=== PATIENT | female | born 1930 | race Caucasian/White ===

== ENCOUNTER 2017-05-24 15:03 | Emergency (ER) | payer MEDICARE, BC ==
[2017-05-24] MEDS ORDERED: 0.9 % SODIUM CHLORIDE 1,000 ML BAG IV ONE (15:43)
--- NOTE | 2017-05-24 15:49 | Emergency Department Record ---
History of Present Illness - General Chief Complaint: Dizziness Stated Complaint: FAINT,DIZINESS,BROKE OUT IN A SWEAT,SEEING SPOTS Time Seen by Provider: 05/24/17 15:40 Source: Patient Mode of Arrival: Ambulatory Limitations: No limitations - History of Present Illness Initial Comments: The patient is here due to becoming dizzy and lightheaded while standing in line at [employer]'s checking out. The patient did see spots in her vision for some time and did get sweating. There was no CP but she did have mild SHERMAN at times. The patient never passed out and was talking the entire time. She also denied any weakness on one side of the body or trouble with her speech. She has had a recent UTI and is on an oral Abx. MD Complaint: Dizziness, Lightheadedness Onset/Timin -: Hour(s) Timing: Sudden onset Description: Lightheadedness History of Same: No History of Trauma: No - Miry[place] Coma Scale Eye Response: (4) Open spontaneously Motor Response: (6) Obeys commands Verbal Response: (5) Oriented Miryam Total: 15 - Related Data Home Medications Medication Instructions Recorded Confirmed Last Taken Nitroglycerin [Nitroglycerin Patch] 1 each TD Q12HR 05/24/17 05/24/17 05/24/17 Nitroglycerin [Nitrostat] 0.4 mg SL ASDIR 05/24/17 05/24/17 05/24/17 Allergies Allergy/AdvReac Type Severity Reaction Status Date / Time Sulfa (Sulfonamide Allergy PT UNSURE Verified 05/24/17 15:19 Antibiotics) OF REACTION Travel Screening - Travel/Exposure Within Last 30 Days Have you traveled within the last 30 days?: No - Travel/Exposure Within Last Year Have you traveled outside the [place] 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" - NEURO Hx Neuro Disorders: No Hx Seizures: No - GI Hx GI Disorders: Yes Hx Reflux: Yes - Hx Genitourinary Disorders: Yes Hx UTI: Yes - ENDOCRINE Hx Endocrine Disorders: Yes Hx Diabetes: Yes (Type II) - MUSCULOSKELETAL Hx Musculoskeletal Disorders: Yes Hx Arthritis: Yes Hx Osteoporosis: Yes - PSYCH Hx Psych Problems: No - HEMATOLOGY/ONCOLOGY Hx Hematology/Oncology Disorders: Yes Hx Cancer: Yes (Over 10 years ago) Hx Chemotherapy: No Hx Radiation Therapy: Yes Family Medical History Any Significant Family History?: Yes Family Hx Comment (NOT TO BE USED IN PLACE OF ITEMS BELOW): Unable to identify and ancesterial history as patient was adopted. Hx Kidney Disease: Children *Kidney Comment: Son related to MS Physical Exam - General General Appearance: Alert, Oriented x3, Cooperative, No acute distress - Head Head exam: Atraumatic, Normocephalic, Normal inspection - Eye Eye exam: Normal appearance, PERRL - ENT Throat exam: Normal inspection. negative: Tonsillar erythema, Tonsillar exudate - Neck Neck exam: Normal inspection, Full ROM. negative: Tenderness - Respiratory Respiratory exam: Normal lung sounds bilaterally. negative: Respiratory distress - Cardiovascular Cardiovascular Exam: Regular rate, Normal rhythm, Normal heart sounds - GI/Abdominal GI/Abdominal exam: Soft, Normal bowel sounds. negative: Tenderness - Extremities Extremities exam: Normal inspection, Full ROM, Normal capillary refill. negative: Tenderness - Neurological Neurological exam: Alert, Normal gait. negative: Abnormal gait, Motor sensory deficit Course Vital Signs 05/24/17 15:24 Temperature 97.3 F L Pulse Rate 87 Respiratory 20 Rate Blood Pressure 125/63 Pulse Ox 100 - Reevaluation(s) Reevaluation #1: The patient is doing very well at this time. She feels better and denies any pain or SOB. 05/24/17 16:26 Reevaluation #2: The patient is doing very well at this time. She denies any pain or discomfort or weakness. She now states she did not eat lunch prior to going on the shopping trip and believes that is why she became lightheaded. 05/24/17 16:57 Reevaluation #3: The patient is doing very well at this time. She is resting comfortably and has no complaints. I did explain the normal lab tests to the patient and family and family and the need for F/U next week if not better. The patient has been up walking normally in the ED and feels comfortable going home. 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 Please see your family doctor next week for any minor problems and return to the ER for any recurrent symptoms, chest pain, shortness of breath or fever. Forms: Patient Portal Access Time of Disposition: 18:46 Quality - Quality Measures Quality Measures: N/A - Blood Pressure Screening View Details: Yes Does Patient Have Any of the Following: No Blood Pressure Classification: Pre-Hypertensive BP Reading Systolic Measurement: 160 Diastolic Measurement: 80 Screening for High Blood Pressure: < Pre-Hypertensive BP, F/U Documented > [ G8950] Pre-Hypertensive Follow-up Interventions: Referral to alternative/primary care provider.
[2017-05-24 15:51] LABS: BASO % 0.2 % (0-6); EOS % 1.9 % (0-6); GRAN % 70.9 % (47-80); HEMATOCRIT 42.1 % (35.0-47.0); HEMOGLOBIN 13.1 gm/dl (11.6-16.0); LYMPH % 21.7 % (16-45); MEAN CELL VOLUME 94.6 fl (81-97); MEAN CORPUSCULAR HEMOGLOBIN 29.4 pg (27-33); MEAN CORPUSCULAR HGB CONC 31.1 g/dl (32-36); MEAN PLATELET VOLUME 10.2 fl (7.4-10.4); MONO % 5.3 % (0-9); PLATELET COUNT 238 K/uL (130-400); RED BLOOD COUNT 4.45 M/uL (3.80-5.40); RED CELL DISTRIBUTION WIDTH 12.5 % (11.5-14.5); WHITE BLOOD COUNT W/O DIFF 9.7 K/uL (4.2-12.2)
[2017-05-24 16:06] LABS: BLOOD UREA NITROGEN 22 mg/dL (8-23); CREATININE 1.1 mg/dL (0.5-0.9); EST GLOMERULAR FILTRATION RATE 50 mL/min; TOTAL PROTEIN 6.9 g/dL (6.6-8.7)
[2017-05-24 16:08] LABS: GLUCOSE,RANDOM 131 mg/dL (74-109)
[2017-05-24 16:11] LABS: ALB/GLOB RATIO 1.6 (1.1-1.8); ALBUMIN 4.2 g/dL (4.0-5.0); ALKALINE PHOSPHATASE 57 U/L (35-104); ALT/SGPT 16 U/L (<33); AST/SGOT 23 U/L (10.0-35.0); CREATINE PHOSPHOKINASE 484 U/L (26-192)
[2017-05-24 16:14] LABS: CKMB 5.2 ng/mL (<3.77)
[2017-05-24 16:22] LABS: THYROID STIMULATING HORMONE 1.97 uIU/mL (0.270-4.20)
[2017-05-24 18:04] LABS: URINE APPEARANCE CLEAR; URINE BILIRUBIN NEGATIVE (NEGATIVE); URINE BLOOD NEGATIVE (NEGATIVE); URINE COLOR YELLOW; URINE GLUCOSE (UA) NEGATIVE (NEGATIVE); URINE KETONE NEGATIVE (NEGATIVE); URINE LEUKOCYTE ESTERASE NEGATIVE (NEGATIVE); URINE NITRITE NEGATIVE (NEGATIVE); URINE PROTEIN NEGATIVE (NEGATIVE); URINE UROBILINOGEN 0.2 E.U./dL (0.20 - 1.00)
[2017-05-24 18:38] LABS: CKMB 4.6 ng/mL (<3.77)
== END 2017-05-24 18:53 | disposition home or self-care (01) ==
LOC: ER 15:03
DX: R42 Dizziness and giddiness (principal); R06.00 Dyspnea, unspecified; E11.9 Type 2 diabetes mellitus without complications
CPT/HCPCS: 80053; 81003; 82550; 82553; 84443; 84484; 85025; 93005; 93010; 96360; 96361; 99284; J7030

== ENCOUNTER 2017-08-14 12:18 | Observation (INO) | payer MEDICARE, BC ==
--- NOTE | 2017-08-14 13:00 | Emergency Department Record ---
History of Present Illness - General Chief complaint: Lower Extremity Pain Stated complaint: SCIATICA Time Seen by Provider: 08/14/17 12:49 Source: Patient Mode of Arrival: Ambulatory Limitations: No limitations - History of Present Illness Initial comments: The patient is here due to a 2 week hx of L back and leg pain. She states it is quite severe and makes it difficult for her to walk around with her cane. She has seen her PCP for it twice and has received multiple pain shots for it. She also had neg L hip and knee xrays last week along with a venous doppler. Now she has been taking [place] for the pain but since it is so severe her PCP told her to come to the ER for admission. MD Complaint: Extremity pain Onset/Timin -: Week(s) Improves with: Movement - Related Data Allergies Allergy/AdvReac Type Severity Reaction Status Date / Time Sulfa (Sulfonamide Allergy PT UNSURE Verified 08/14/17 12:33 Antibiotics) OF REACTION Travel Screening - Travel/Exposure Within Last 30 Days Have you traveled within the last 30 days?: No - Travel/Exposure Within Last Year Have you traveled outside the [place] in the last year?: No - Additonal Travel Details Have you been exposed to anyone with a communicable illness?: No - Travel Symptoms Symptom Screening: None Review of Systems Constitutional: Denies: Chills, Fever Eyes: Denies: Eye discharge ENT: Denies: Congestion Respiratory: Denies: Cough Cardiovascular: Denies: Arrhythmia, Chest pain Endocrine: Denies: Fatigue Gastrointestinal: Denies: Abdominal pain Genitourinary: Denies: Dysuria Musculoskeletal: Reports: Arthralgia, Back pain Past Medical History - SOCIAL HISTORY Smoking Status: Never smoker Alcohol Use: None Drug Use: None - RESPIRATORY Hx Respiratory Disorders: No - CARDIOVASCULAR Hx Cardio Disorders: Yes Comment:: 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" - NEURO Hx Neuro Disorders: No Hx Seizures: No - GI Hx GI Disorders: Yes Hx Reflux: Yes - Hx Genitourinary Disorders: Yes Hx UTI: Yes - ENDOCRINE Hx Endocrine Disorders: Yes Hx Diabetes: Yes (Type II) - MUSCULOSKELETAL Hx Musculoskeletal Disorders: Yes Hx Arthritis: Yes Hx Osteoporosis: Yes - PSYCH Hx Psych Problems: No - HEMATOLOGY/ONCOLOGY Hx Hematology/Oncology Disorders: Yes Hx Cancer: Yes (Over 10 years ago) Hx Chemotherapy: No Hx Radiation Therapy: Yes Family Medical History Any Significant Family History?: Yes Family Hx Comment (NOT TO BE USED IN PLACE OF ITEMS BELOW): Unable to identify and ancesterial history as patient was adopted. Hx Kidney Disease: Children *Kidney Comment: Son related to MS Physical Exam - General General Appearance: Alert, Oriented x3, Cooperative, No acute distress - Head Head exam: Atraumatic, Normocephalic, Normal inspection - Eye Eye exam: Normal appearance, PERRL - Neck Neck exam: Normal inspection, Full ROM. negative: Tenderness - Respiratory Respiratory exam: Normal lung sounds bilaterally. negative: Respiratory distress - Cardiovascular Cardiovascular Exam: Regular rate, Normal rhythm, Normal heart sounds - GI/Abdominal GI/Abdominal exam: Soft, Normal bowel sounds. negative: Tenderness - Extremities Extremities exam: Normal inspection, Normal capillary refill, Other (The L leg is NVI.). negative: Calf tenderness, Full ROM (There is diffuse L Leg tenderness to palpation athough the leg appears normal on exam.), Joint swelling , Pedal edema, Tenderness - Back Back exam: Reports: Normal inspection, Paraspinal tenderness (L lower lumbar paraspinal mainly.), Vertebral tenderness - Neurological Neurological exam: Abnormal gait (The patient is able to walk with her cane with pain.), Alert. negative: Motor sensory deficit, Normal gait Course Vital Signs 08/14/17 12:33 Temperature 97.1 F L Pulse Rate 77 Respiratory 17 Rate Blood Pressure 134/63 Pulse Ox 96 - Reevaluation(s) Reevaluation #1: The patient is resting comfortably in no acute distress with no new complaints. I did discuss the issues with the patient and daughter and they state the patient is not able to get around her home and she lives alone and per the daughter is a fall risk. I then did discuss the problems with Carmen (CONFIDENTIAL INVESTIGATOR) who is [employer] dynamics consultant with Dr. Gale and due to the social situation and Sciatica she does accept the admission for PT and possible NH placement. 08/14/17 14:20 Medical Decision Making - Data Complexity MDM Data: Labs Ordered and/or Reviewed, X-Ray Ordered and/or Reviewed - Lab Data Result diagrams: 08/14/17 13:10 08/14/17 13:10 - Radiology Data Radiology results: Report reviewed (Lumbar spine: extensive DDD, no acute changes.) Disposition Disposition: Admit Clinical Impression: Sciatic leg pain Disposition: Still a Patient at [facility] Decision to Admit: Admit from ER Decision to Admit Date: 08/14/17 Decision to Admit Time: 14:22 Accepting Physician: Shahla Time Discussed w/Accepting Physician: 14:23 Condition: (2) Stable Time of Disposition: 14:23 Quality - Quality Measures Quality Measures: N/A - Blood Pressure Screening View Details: Yes Does Patient Have Any of the Following: No Blood Pressure Classification: Pre-Hypertensive BP Reading Systolic Measurement: 134 Diastolic Measurement: 63 Screening for High Blood Pressure: < Pre-Hypertensive BP, F/U Documented > [ G8950] Pre-Hypertensive Follow-up Interventions: Referral to alternative/primary care provider.
[2017-08-14 13:15] LABS: BASO % 0.2 % (0-6); EOS % 0.5 % (0-6); HEMATOCRIT 43.1 % (35.0-47.0); HEMOGLOBIN 14.4 gm/dl (11.6-16.0); LYMPH % 14.7 % (16-45); MEAN CELL VOLUME 90.5 fl (81-97); MEAN CORPUSCULAR HEMOGLOBIN 30.3 pg (27-33); MEAN CORPUSCULAR HGB CONC 33.4 g/dl (32-36); MEAN PLATELET VOLUME 9.6 fl (7.4-10.4); MONO % 5.6 % (0-9); PLATELET COUNT 274 K/uL (130-400); RED BLOOD COUNT 4.76 M/uL (3.80-5.40); RED CELL DISTRIBUTION WIDTH 12.7 % (11.5-14.5); WHITE BLOOD COUNT W/O DIFF 10.7 K/uL (4.2-12.2)
[2017-08-14 13:27] LABS: BILIRUBIN,TOTAL 0.8 mg/dL (0.2-1.0); CREATININE 1.1 mg/dL (0.5-0.9); TOTAL PROTEIN 7.3 g/dL (6.6-8.7)
[2017-08-14 13:32] LABS: ALB/GLOB RATIO 1.4 (1.1-1.8); ALBUMIN 4.3 g/dL (4.0-5.0)
[2017-08-14] MEDS ORDERED: HYDROCODONE/APAP 5/325MG TABLET PO ONE (14:18)
[2017-08-14] MEDS ORDERED: LIDOCAINE 5% PATCH TOP ONE (14:19)
[2017-08-14] MEDS ORDERED: ACETAMINOPHEN 500 MG TABLET PO PRN (15:35)
--- NOTE | 2017-08-14 15:49 | History & Physical ---
History of Present Illness - Date of Service Date of Service for History & Physical: 08/14/17 - History of Present Illness Admitting Diagnosis: 1. L Leg Sciatica Pain with Inability to Walk. History of Present Illness: 87yo female admitted for pain mgt. PMH HTN, cardiovascular disease, DDD and arthritis and new onset left sciatica pain. Pt has been seeing her PCP Dr Autsin for continued back and leg pain r/t sciatica since August 03. Pt has been given several injections of toradol, depo- medrol and norflex in the office twice. Pt also taking ultram during the day and norco at night but today started taking norco at 4am and continued every 4- 6 hours today. Pt brought to ER by daughter for uncontrolled pain. Pt reports not being able to walk at home r/t pain. Pt states her PCP instructed her to present to the ER for admission for pain control. Pt daughter states pt is unable to walk to care for self with the current pain but pt is refusing placement and wants providers "to find out what pain medicine works for me and then I want to go home". Pt taking Ultram 100mg TID and norco 5/325mg at HS with little control recently. 97.1F, HR 77, BP 134/77, RR 17, 96% RA, pain 08/22 WBC 10.7, Hgb 14.4, Hct 43.1, plt 274 NA 137, K 4, CL 95, CO2 22, BUN 21, creatinine 1.1, GFR 50, glucose 140 Lumbar XR- DDD no masses or acute process (audio clip reviewed) 08/14/17 Pt does not appear in distress but continues to c/o left leg pain. Pt and daughter updated with POC, PO meds, PT/OT eval in the AM, slow increased titration of gabapentin. pt taking 100mg BID, increased to TID and can continue to increase to 300mg as needed. Adding solumedrol 60mg BID for sciatic pain and insulin s/s to cover for potential glucose elevations. Case Mgt will assist with PT for home or rehab depending on eval results. PCP Dr Austin Travel Screening - Travel/Exposure Within Last 30 Days Have you traveled within the last 30 days?: No - Travel/Exposure Within Last Year Have you traveled outside the [place] in the last year?: No - Additonal Travel Details Have you been exposed to anyone with a communicable illness?: No - Travel Symptoms Symptom Screening: None Review of Systems Constitutional: Denies: Chills, Fever Eyes: Denies: Eye discharge ENT: Denies: Congestion Respiratory: Denies: Cough Cardiovascular: Denies: Arrhythmia, Chest pain Endocrine: Denies: Fatigue Gastrointestinal: Denies: Abdominal pain Genitourinary: Denies: Dysuria Musculoskeletal: Reports: Arthralgia, Back pain Neurological: Reports: Abnormal gait, Weakness Past Medical History - SOCIAL HISTORY Smoking Status: Never smoker Alcohol Use: None Drug Use: None - RESPIRATORY Hx Respiratory Disorders: No - CARDIOVASCULAR Hx Cardio Disorders: Yes Comment:: 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" - NEURO Hx Neuro Disorders: No Hx Seizures: No - GI Hx GI Disorders: Yes Hx Reflux: Yes - Hx Genitourinary Disorders: Yes Hx UTI: Yes - ENDOCRINE Hx Endocrine Disorders: Yes Hx Diabetes: Yes (Type II) - MUSCULOSKELETAL Hx Musculoskeletal Disorders: Yes Hx Arthritis: Yes Hx Osteoporosis: Yes - PSYCH Hx Psych Problems: No - HEMATOLOGY/ONCOLOGY Hx Hematology/Oncology Disorders: Yes Hx Cancer: Yes (Over 10 years ago) Hx Chemotherapy: No Hx Radiation Therapy: Yes Family Medical History Any Significant Family History?: Yes Family Hx Comment (NOT TO BE USED IN PLACE OF ITEMS BELOW): Unable to identify and ancesterial history as patient was adopted. Hx Kidney Disease: Children *Kidney Comment: Son related to MS H&P Meds/Allergies - Allergies Allergies: Allergies Allergy/AdvReac Type Severity Reaction Status Date / Time Sulfa (Sulfonamide Allergy PT UNSURE Verified 08/14/17 12:33 Antibiotics) OF REACTION - Home Medications Home Medications Medication Instructions Recorded Confirmed Last Taken Lisinopril [Prinivil] 5 mg PO DAILY 08/14/17 08/14/17 Unknown Metoprolol Succinate 25 mg PO DAILY 08/14/17 08/14/17 Unknown Wheat Dextrin [Benefiber] 1 each PO DAILY 08/14/17 08/14/17 Unknown - Active Medications Active Medications: Current Medications Acetaminophen (Tylenol 500mg Tab) 500 mg PO Q6H PRN PRN Reason: PAIN - MILD(1-4)/FEVER Hydrocodone Bitart/Acetaminophen ([place] 5mg/325mg) 1 each PO Q4H PRN PRN Reason: ANALGESIA Lidocaine (Lidoderm) 1 each TOP DAILY ALEXYS Non-Formulary Medication (Alendronate Sodium [Alendronate Sodium]) 70 mg PO WEEKLY ALEXYS Non-Formulary Medication (Aspirin [Aspirin Ec]) 81 mg PO DAILY ALEXYS Non-Formulary Medication (Calcium Carb, Citrate/Vit D3 [Citracal + D Er Tablet] ) 1 each PO DAILY ALEXYS Non-Formulary Medication (Gabapentin [Gabapentin]) 100 mg PO TID ALEXYS Non-Formulary Medication (Levothyroxine Sodium [Synthroid]) 88 mcg PO DAILYTHY ALEXYS Non-Formulary Medication (Nitroglycerin [Nitroglycerin Patch]) 1 each TD Q12HR ALEXYS Non-Formulary Medication (Nitroglycerin [Nitrostat]) 0.4 mg SL ASDIR ALEXYS Non-Formulary Medication (Omeprazole [Omeprazole]) 20 mg PO TID ALEXYS Non-Formulary Medication (Ondansetron [Zofran Odt]) 4 mg PO Q6H ALEXYS Non-Formulary Medication (Polyethylene Glycol 3350 [Miralax]) 17 gm PO DAILY ALEXYS Non-Formulary Medication (Tramadol Hcl [Tramadol Hcl]) 50 mg PO TID PRN PRN Reason: Pain - General Physical Exam - Vital Signs Vital Signs: Vital Signs - Last 24 Hrs Temp Pulse Pulse Resp BP BP Pulse Ox 08/14/17 15:05 97.9 F 77 16 125/86 96 08/14/17 14:05 98 H 18 161/87 98 08/14/17 13:09 71 16 119/66 95 08/14/17 12:33 97.1 F L 77 17 134/63 96 - General General Appearance: Alert, Oriented x3, Cooperative, No acute distress Limitations: No limitations - Head Head exam: Atraumatic, Normocephalic, Normal inspection - Eye Eye exam: Normal appearance, PERRL - ENT ENT exam: Normal exam Ear exam: Normal external inspection Mouth exam: Normal external inspection Throat exam: Normal inspection - Neck Neck exam: Normal inspection, Full ROM. negative: Tenderness - Respiratory Respiratory exam: Normal lung sounds bilaterally. negative: Respiratory distress - Cardiovascular Cardiovascular Exam: Regular rate, Normal rhythm, Normal heart sounds Peripheral Pulses: 2+: Radial (R), Radial (L), Dorsalis Pedis (R), Dorsalis Pedis (L) - GI/Abdominal GI/Abdominal exam: Soft, Normal bowel sounds. negative: Tenderness - Rectal Rectal exam: Deferred - exam: Deferred - Extremities Extremities exam: Normal inspection, Normal capillary refill, Other (The L leg is NVI.). negative: Calf tenderness, Full ROM (There is diffuse L Leg tenderness to palpation athough the leg appears normal on exam.), Joint swelling , Pedal edema, Tenderness - Back Back exam: Reports: Normal inspection, Paraspinal tenderness (L lower lumbar paraspinal mainly.), Vertebral tenderness - Neurological Neurological exam: Abnormal gait (The patient is able to walk with her cane with pain.), Alert. negative: Motor sensory deficit, Normal gait Results - Labs Result Diagrams: 08/14/17 13:10 08/14/17 13:10 Labs Last 24 Hours: Laboratory Results - last 24 hr 08/14/17 08/14/17 13:10 13:10 WBC 10.7 RBC 4.76 Hgb 14.4 Hct 43.1 MCV 90.5 MCH 30.3 MCHC 33.4 RDW 12.7 Plt Count 274 MPV 9.6 Gran % 79.0 Lymphocytes % 14.7 L Monocytes % 5.6 Eosinophils % 0.5 Basophils % 0.2 Sodium 137 Potassium 4.0 Chloride 95 L Carbon Dioxide 22.0 Anion Gap 20.0 H BUN 21 Creatinine 1.1 H Estimated GFR 50 Random Glucose 140 H Calcium 9.5 Total Bilirubin 0.80 AST 22 ALT 14 Alkaline Phosphatase 53 Total Protein 7.3 Albumin 4.3 Globulin 3.0 Albumin/Globulin Ratio 1.4 VTE H&P Assessment - Risk for VTE Risk for VTE: Yes Risk Level: Moderate Risk Assessment Date: 08/14/17 Risk Assessment Time: 20:54 VTE Orders Placed or Will Be Placed: Yes Plan - Inpatient Certification Inpatient Certification: Admit to inpatient care: Based on my medical assessment, after consideration of patient's risk factors (age, co-morbidities and patient presenting symptoms and acuity), I expect that this patient will remain in the hospital greater than or equal to two midnights and that the services needed warrant inpatient care because: Patient Risk Factors: pain control, fall risk, decreased ADLs Estimated length of stay: [] The patient may reasonably be expected to be discharged or transferred to a hospital within 48 hours after admission to [facility]. Services needed: PT/OT eval, pain mgt, rehab services Post hospital care (if known): [] I certify that my determination is in accordance with my understanding of Medicare requirements for reasonable and necessary inpatient services. 08/14/17 20:54 - Detailed Diagnosis and Plan (1) Sciatic leg pain Current Visit: Yes Status: Acute Base Code: M54.30 - SCIATICA, UNSPECIFIED SIDE Comment: 08/14/17 -pt admitted for ob r/t pain control -left leg pain with sciatica -PT/Ot eval -Po pain meds, steroids, muscle relaxers -poss rehab placement (2) Pain management Current Visit: Yes Status: Acute Base Code: R52 - PAIN, UNSPECIFIED Comment: 08/14/17 -norco 5/325 q4 hr PRN -flexeril 5mg BID PRN -solumedrol 60mg BID for 1-2 days then Po -Gabapentin (increase daily, starting 100mg TID then day 2- 100mg AM/afternoon 300mg HS, day 3- 100mg AM and 300mg afternoon and hs, day 4 300mg TID if tolerating) -PT -dispo home with PT or to rehab short term for PT -pt made aware that inpt will not manage her narcotics, this will have to be managed by PCP when discharge. Pt and daughter verbalized understanding of this at admission (3) Osteoarthrosis Current Visit: No Status: Acute Base Code: M19.90 - UNSPECIFIED OSTEOARTHRITIS, UNSPECIFIED SITE Comment: 08/14/17 -XR lumbar spin shows DDD -pain control -Pt/Ot eval (4) DVT prophylaxis Current Visit: Yes Status: Acute Base Code: [id number] - Comment: 08/14/17 lovenox 40mg SQ daily
[2017-08-14] MEDS ORDERED: NITROGLYCERIN 0.4MG SL TABLET #25 BTL SL PRN (16:46)
[2017-08-14] MEDS ORDERED: TRAMADOL HCL 50 MG TABLET PO PRN (16:51)
[2017-08-14] MEDS ORDERED: ONDANSETRON 4 MG ODT TABLET SL PRN (17:00)
[2017-08-14] MEDS: PANTOPRAZOLE SODIUM 40 MG TABLET PO SCH (17:30)
[2017-08-14] MEDS ORDERED: CYCLOBENZAPRINE 10MG TABLET PO PRN (17:44)
[2017-08-14] MEDS: HYDROCODONE/APAP 5/325MG TABLET PO PRN (21:18)
[2017-08-14] MEDS: GABAPENTIN 100 MG CAPSULE PO SCH (21:19)
[2017-08-14] MEDS: METHYLPREDNISOLONE PF 125MG/VIAL IVP SCH (21:22)
[2017-08-14] MEDS ORDERED: SIMVASTATIN 20 MG TABLET PO SCH (22:00)
[2017-08-14] MEDS ORDERED: GABAPENTIN 100 MG CAPSULE PO SCH (22:00)
[2017-08-14] MEDS ORDERED: REMOVE PATCH 1 EACH MISC TD SCH ×3 (22:00)
[2017-08-15] MEDS: HYDROCODONE/APAP 5/325MG TABLET PO PRN ×2 (05:18→09:38)
[2017-08-15] MEDS: PANTOPRAZOLE SODIUM 40 MG TABLET PO SCH (06:22)
[2017-08-15] MEDS ORDERED: LEVOTHYROXINE SODIUM 88 MCG TABLET PO SCH (07:00)
--- NOTE | 2017-08-15 07:24 | RADIOLOGY REPORT ---
EXAM: LUMBAR SPINE, THREE VIEWS HISTORY: LEFT HIP AND LOW BACK PAIN. TECHNIQUE: AP, translumbar lateral, and lumbosacral lateral views of the lumbar spine were obtained. Comparison: No prior lumbar spine series. FINDINGS: There is tilting of the spine to the left. Diffuse osteopenia consistent with osteoporosis. There is advanced degenerative disk disease at the L2-L3 interspace with prominent hypertrophic spurring, and less prominent narrowing of multiple other lumbar interspaces with associated hypertrophic spurring as well. There is prominent spurring at the posterior aspect of the lumbosacral interspace. Facet joint arthropathy in the lower lumbar spine. Mild spurring in the lower thoracic spine. There is mild posterior subluxation of the body of L2 on L3 which is likely chronic on the basis of the advanced degenerative change at this level. The lumbosacral lateral views are slightly rotated, but there is probably some mild anterior subluxation of L5 on S1 which is probably on the basis of the advanced degenerative change at this level as well. This study is somewhat limited without oblique views. IMPRESSION: 1. OSTEOPOROSIS. 2. MULTILEVEL DEGENERATIVE CHANGES MOST MARKED AT THE L2-L3 AND L5-S1 LEVELS. THERE IS MILD POSTERIOR SUBLUXATION OF L2 ON L3 AND PROBABLY MILD ANTERIOR SUBLUXATION OF L5 ON S1, BOTH OF WHICH ARE PROBABLY RELATED TO ADVANCED DEGENERATIVE CHANGE. 3. NO DEFINITE FRACTURE OF THE LUMBAR SPINE IDENTIFIED. JOB NUMBER: [id number] [facility]
[2017-08-15] MEDS ORDERED: NOVOLOG FLEXPEN (INSULIN ASPART) 100 UNITS/ML SQ SCH (07:45)
[2017-08-15] MEDS: GABAPENTIN 100 MG CAPSULE PO SCH (09:40)
[2017-08-15] MEDS: METHYLPREDNISOLONE PF 125MG/VIAL IVP SCH (09:46)
[2017-08-15] MEDS ORDERED: ENOXAPARIN 40 MG/0.4 ML SYR SQ SCH (10:00)
[2017-08-15] MEDS ORDERED: METOPROLOL SUCC 25 MG TAB.ER PO SCH (10:00)
[2017-08-15] MEDS ORDERED: ASPIRIN 81 MG TABEC PO SCH (10:00)
[2017-08-15] MEDS ORDERED: NITROGLYCERIN 0.1 MG TD SCH (10:00)
[2017-08-15] MEDS ORDERED: LISINOPRIL 5 MG TABLET PO SCH (10:00)
[2017-08-15] MEDS ORDERED: LIDOCAINE 5% PATCH TOP SCH (10:00)
[2017-08-15] MEDS ORDERED: POLYETHYLENE GLYCOL 17 GM PO SCH (10:00)
[2017-08-15] MEDS ORDERED: CALCIUM CARB CITRATE PO SCH (10:00)
[2017-08-15] MEDS ORDERED: NITROGLYCERIN 0.2 MG TD SCH (10:00)
[2017-08-15] MEDS ORDERED: VIT D3 PO SCH (10:00)
--- NOTE | 2017-08-15 10:42 | Rehab Evaluation ---
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" PMH - Neuro Hx Neurological Disorders No Hx Seizures No PMH - GI Hx Gastrointestinal Disorders Yes Hx Gastroesophageal Reflux Yes PMH - Hx Genitourinary Disorders Yes Patient No Hx Urinary Tract Infection Yes PMH - Endocrine Hx Endocrine Disorders Yes Hx Diabetes Yes: Type II Hx Thyroid Disease Yes: Hypothyroid PMH - Musculoskeletal Hx Musculoskeletal Disorders Yes Hx Arthritis Yes Hx Osteoporosis Yes PMH - Psych Hx Psychiatric Problems No PMH - Hematology/Oncology Hx Hematology/Oncology Yes Disorders Hx Cancer Yes: Over 10 years ago Hx Chemotherapy No Hx Radiation Therapy Yes Premorbid Status: Detail (Pt. was Ind with all I/ADL's including driving, meal prep, grocery shopping, household management, and self care. Pt. had occasional assistance from her daughter (i.e. supervisor pole yard a few things at store). Ambulates with a single point cane with wide base.) Social History: Detail (Pt. lives alone in an apartment on the main floor, and does not require the use of stairs at home. Bathroom consists of a tub/shower combo with shower chair, curtain, & fixed shower head, & standard toilet. There is one grab bar located between the tub and toilet so pt. is able to access it from either. Pt's daughter recently retired and has been assisting as needed.) Precautions: [place], Fall - Time With Patient Total Time Spent With Patient (Min): 45 Treatment Procedures: Detail (OT Eval Low. Session was concluded with pt. supine in bed, and call light and bedside tray within reach with all needs met.) Subjective Information - Subjective Information Per Patient (R hand dominant. Hx of L arm fx (approx. 10 yrs. ago) with no residual symptoms.) Objective Data - Pain Pain Present: Yes (4/10 pain at rest that increased to 5/10 with activity located in L thigh and knee) - Mental Status Patient Orientation: Oriented x3 - Visual Perception Appears within normal limits for therapeutic activities (with glasses) - ROM Within normal limits (BUE WFL) - Strength/Tone Not within normal limits (MMT: L shd flex & abd 3+/5, triceps 3+/5, biceps 4-/ 5. R shd flex & abd 4-/5, biceps & triceps 4/5.) - Coordination Appears within normal limits for therapeutic activities (Pt. had difficulty with fingers to thumb coordination, but reported no difficulty with [facility] tasks ( i.e. clothing fasteners, packages).) - Bed Mobility Independent - Transfers Independent (sit<>stand seated EOB to standing using cane (modified Ind.)) - Balance Balance Sitting: Good Balance Standing: Fair - Sensation Intact (BUE fingertips light touch intact) - ADL's/IADL's Detail (Pt. demo. ability to dress Ind. seated EOB (don/doff socks, bra, dress) , sponge bathe standing at sink, & toilet Ind. with occasional UE support on sink, grab bar, or with use of cane. Pt. presents with a severe bent-over posture of UB that increases fall risk. Initially, pt. voiced concern for ability to t/f in/out of tub d/t sciatica pain but when addressed later in the session, denied concern. Pt. reported use of a rolling cart to assist with transporting of laundry and groceries up/down hallways at apt. Does not use AE at home (i.e. photography editor, etc.). Educ. in potential use of long handled sponge to increase ease of reaching back and decrease fall risk for bathing LB, but pt. replied she probably wouldn't use it.) Therapy Assessment - Therapy Assessment Detail (In-pt. OT services not required at this time. Pt. would benefit from in- home OT eval & tx with focus on environmental set-up eval & tx for BUE weakness to maximize safety and for increased ease of ADL's. Pt. stated daughter is able to assist if needed.) Prognosis - Prognosis Good Plan - Plan Occupational Therapy Plan: D/C from in-pt. OT services.
--- NOTE | 2017-08-15 10:58 | Discharge Summary ---
Providers Discharge Summary Date: 08/15/17 Date of admission: 08/14/17 15:16 Expected Date of Discharge: 08/15/17 Attending physician: SHEFALI KEARNEY Primary care physician: EMILY SEN D.O. Physical Exam - Vital Signs Vital Signs: Vital Signs - Last 24 Hrs Temp Pulse Pulse Resp BP BP BP 08/15/17 08:00 98.3 F 78 18 137/64 08/15/17 04:00 97.9 F 76 20 173/81 08/14/17 21:00 18 08/14/17 20:00 98.3 F 70 18 124/88 08/14/17 15:35 77 16 08/14/17 15:25 97.5 F L 67 18 188/97 08/14/17 15:05 97.9 F 77 16 125/86 08/14/17 14:05 98 H 18 161/87 08/14/17 13:09 71 16 119/66 08/14/17 12:33 97.1 F L 77 17 134/63 Pulse Ox 08/15/17 08:00 99 08/15/17 04:00 95 08/14/17 21:00 08/14/17 20:00 95 08/14/17 15:35 08/14/17 15:25 99 08/14/17 15:05 96 08/14/17 14:05 98 08/14/17 13:09 95 08/14/17 12:33 96 - General General Appearance: Alert, Oriented x3, Cooperative, No acute distress Limitations: No limitations - Head Head exam: Atraumatic, Normocephalic, Normal inspection - Eye Eye exam: Normal appearance, PERRL - ENT ENT exam: Normal exam Ear exam: Normal external inspection Mouth exam: Normal external inspection Throat exam: Normal inspection - Neck Neck exam: Normal inspection, Full ROM. negative: Tenderness - Respiratory Respiratory exam: Normal lung sounds bilaterally. negative: Respiratory distress - Cardiovascular Cardiovascular Exam: Regular rate, Normal rhythm, Normal heart sounds Peripheral Pulses: 2+: Radial (R), Radial (L), Dorsalis Pedis (R), Dorsalis Pedis (L) - GI/Abdominal GI/Abdominal exam: Soft, Normal bowel sounds. negative: Tenderness - Rectal Rectal exam: Deferred - exam: Deferred - Extremities Extremities exam: Normal inspection, Normal capillary refill, Other (The L leg is weaker than R). negative: Calf tenderness, Full ROM (There is diffuse L Leg tenderness to palpation athough the leg appears normal on exam.), Joint swelling , Pedal edema, Tenderness - Back Back exam: Reports: Normal inspection, Paraspinal tenderness (L lower lumbar paraspinal mainly.), Vertebral tenderness - Neurological Neurological exam: Abnormal gait (The patient is able to walk with her cane with pain.), Alert. negative: Motor sensory deficit, Normal gait - Psychiatric Psychiatric exam: Normal affect, Normal mood - Skin Skin exam: Normal color Hospitalization - Hospitalization Admission Diagnosis: sciatica - Problem List/Discharge Diagnosis (1) Pain management Current Visit: Yes Status: Acute Base Code: R52 - PAIN, UNSPECIFIED Comment: 08/15/17 -norco 5/325 q4 hr PRN -flexeril 5mg BID PRN -Gabapentin (increase daily, starting 100mg TID then day 2- 100mg AM/afternoon 300mg HS, day 3- 100mg AM and 300mg afternoon and hs, day 4 300mg TID if tolerating) -PT -dispo home with PT and visiting nurse -pt made aware that inpt will not manage her narcotics, this will have to be managed by PCP when discharge. Pt and daughter verbalized understanding of this at admission (2) Sciatic leg pain Current Visit: Yes Status: Acute Base Code: M54.30 - SCIATICA, UNSPECIFIED SIDE Comment: 08/15/17 -pt admitted for obs r/t pain control -left leg pain with sciatica -PT/Ot eval -Po pain meds, steroids, muscle relaxers -Patient feeling better, ambulating with cane to bathroom (3) DVT prophylaxis Current Visit: Yes Status: Acute Base Code: [id number] - Comment: 08/15/17: moderate risk due to age, decreased mobility, and comorbidities lovenox 40mg SQ daily - Hospitalization Course Disposition: Home Health Service Hospital Course: 87yo female admitted for pain mgt. PMH HTN, cardiovascular disease, DDD and arthritis and new onset left sciatica pain. Pt has been seeing her PCP Dr Sen for continued back and leg pain r/t sciatica since August 03. Pt has been given several injections of toradol, depo- medrol and norflex in the office twice. Pt also taking ultram during the day and norco at night but today started taking norco at 4am and continued every 4- 6 hours today. Pt brought to ER by daughter for uncontrolled pain. Pt reports not being able to walk at home r/t pain. Pt states her PCP instructed her to present to the ER for admission for pain control. Pt daughter states pt is unable to walk to care for self with the current pain but pt is refusing placement and wants providers "to find out what pain medicine works for me and then I want to go home". Pt taking Ultram 100mg TID and norco 5/325mg at HS with little control recently. 97.1F, HR 77, BP 134/77, RR 17, 96% RA, pain 08/22 WBC 10.7, Hgb 14.4, Hct 43.1, plt 274 NA 137, K 4, CL 95, CO2 22, BUN 21, creatinine 1.1, GFR 50, glucose 140 Lumbar XR- DDD no masses or acute process (audio clip reviewed) 08/14/17 Pt does not appear in distress but continues to c/o left leg pain. Pt and daughter updated with POC, PO meds, PT/OT eval in the AM, slow increased titration of gabapentin. pt taking 100mg BID, increased to TID and can continue to increase to 300mg as needed. Adding solumedrol 60mg BID for sciatic pain and insulin s/s to cover for potential glucose elevations. Case Mgt will assist with PT for home or rehab depending on eval results. PCP Dr Sen 08/15/17: Patient alert & oriented x 4. Resting comfortably in bed, daughter at bedside. Patient was able to ambulate in halls today, up with cane to bathroom , able to get dressed and clean self this morning. States pain has improved, has been taking [place] TID since admission along with steroids. Patient to be discharged with visiting nurse and home PT, norco TID prn, flexeril qhs prn, and to follow-up with PCP in 1-2 weeks. Procedures: Imaging and X-Rays 08/14/17 12:54 LUMBAR SPINE / AP LAT [RAD] Stat Abnormal Labs: Abnormal Lab Results 08/14/17 08/14/17 08/15/17 Range/Units 13:10 13:10 06:49 Lymphocytes % 14.7 L (16-45) % Chloride 95 L (98-107) mmol/L Anion Gap 20.0 H (7-16) Creatinine 1.1 H (0.5-0.9) mg/dL POC Glucose 130 H (70-110) mg/dL Random Glucose 140 H (74-109) mg/dL Condition at Discharge: (2) Stable VTE Discharge VTE Reason For No Overlap Therapy: Not Indicated Discharge Medications - Discharge Medications Prescriptions: Cyclobenzaprine HCl [Flexeril] 5 mg PO BID PRN #10 tablet PRN Reason: muscle spasms/leg pain Gabapentin [Neurontin] 100 mg PO TID #21 capsule Hydrocodone/APAP 5/325Mg [[place] 5Mg/325Mg] 1 each PO Q4H PRN #20 tab PRN Reason: Pain - Mod To Severe (5-10) Home Medications: Ambulatory Orders Alendronate Sodium 70 mg PO WEEKLY 12/21/13 [Last Taken 05/24/17] Levothyroxine Sodium [Synthroid] 88 mcg PO DAILYTHY 12/21/13 [Last Taken ] Lovastatin 40 mg PO QHS 12/21/13 [Last Taken 05/24/17] Omeprazole 20 mg PO BIDAC 12/21/13 [Last Taken 05/24/17] Tramadol HCl 100 mg PO TID PRN 12/21/13 [Last Taken 05/24/17] Aspirin [Aspirin EC] 81 mg PO DAILY 05/22/14 [Last Taken 05/24/17] Calcium Carb, Citrate/Vit D3 [Citracal + D ER Tablet] 1 each PO DAILY 05/22/14 [ Last Taken 05/24/17] Multivit-Min/FA/Lycopene/Lut [Centrum Silver Tablet] 1 each PO DAILY 05/22/14 [ Last Taken 05/24/17] Ondansetron [Zofran Odt] 4 mg PO Q6H PRN 05/27/14 [Last Taken 05/24/17] Nitroglycerin [Nitroglycerin Patch] 1 each TD DAILY 05/24/17 [Last Taken ] Nitroglycerin [Nitrostat] 0.4 mg SL Q5MIN PRN 05/24/17 [Last Taken 05/24/17] Lisinopril [Prinivil] 5 mg PO DAILY 08/14/17 [Last Taken Unknown] Metoprolol Succinate 25 mg PO DAILY 08/14/17 [Last Taken Unknown] Wheat Dextrin [Benefiber] 1 each PO DAILY 08/14/17 [Last Taken Unknown] Cyclobenzaprine HCl [Flexeril] 5 mg PO BID PRN #10 tablet 08/15/17 [Last Taken Unknown] Gabapentin [Neurontin] 100 mg PO TID #21 capsule 08/15/17 [Last Taken Unknown] Hydrocodone/APAP 5/325Mg [[place] 5Mg/325Mg] 1 each PO Q4H PRN #20 tab 08/15/17 [ Last Taken Unknown] Lisinopril [Zestril] 5 mg PO DAILY tablet 08/15/17 [Last Taken Unknown] Metoprolol Succinate [Toprol Xl] 25 mg PO DAILY tab.er.24h 08/15/17 [Last Taken Unknown] Discharge Plan - Discharge Instructions Activity at Discharge: Increase Activity as Tolerated, Other Additional Instructions: Take the NEURONTIN three times a day Use the FLEXERIL (muscle relaxer) as needed, it may make you tired so take at bedtime Take the NORCO up to 3 times a day as needed for pain [place] nurse and home PT will be set-up for you Follow-up with you PCP Dr. Sen in 1-2 weeks for further pain control Quality Measures - Quality Measures Quality Measures: Advance Directives, Documentation of Current Medications in Medical Record, Elder Maltreatment Screen and Follow-Up Plan, Screening for High Blood Pressure and F/U Documented - Current Medications Quality Measure: Measure #130: Documentation of Current Medications Documentation of Current Medications: <Current Medications Documented/Reviewed> [G8402] - Blood Pressure Screening Quality Measure: Screening for High Blood Pressure and Follow-Up Documented Does Patient Have Any of the Following: Active Dx of HTN Blood Pressure Classification: Pre-Hypertensive BP Reading Systolic Measurement: 134 Diastolic Measurement: 63 Screening for High Blood Pressure: Patient Exclusion, Hx of HTN [G9744] - Advance Directives Quality Measure: Measure #47: Care Plan Advance Directives Established: No Advance Directives Information Provided To Patient: Declined Advance Directives on File: No Living Will: Yes Power of Diet Kitchen Cook: Yes Power of Diet Kitchen Cook Name: Gabriella Gross Advance Care Planning: <Care Plan/Decision Maker Not Decided; Discussed & Documented> [1120F] - Elder Abuse Suspicion Index Screening: Elder Abuse Suspicion Index Screening Rely on people for bathing, dressing, shopping, banking, etc: No Prevented from getting food, clothes, medication, etc: No Made to feel shamed or threatened by someone: No Forced to sign papers or use money against will: No Feel afraid, touched in ways not wanted or hurt physically: No Poor eye contact, withdrawn, malnourished, cuts or bruises: No Screening Result: Negative result EASI Reference Information: Eulalia CONNOR, Bethany Carter, Abner Lorenzo, Lisa Cohen.Development and validation of a tool to assist physicians identification of elder abuse: The Elder Abuse Suspicion Index (EASI ). Journal of Elder Abuse and Neglect, 2008; 20 (3): 276-300. - Elder Maltreatment Screen Quality Measures: Elder Maltreatment Screen and Follow-Up Plan Elder Maltreatment Screen: <Negative, No Follow-Up Plan Required> [G8734]
--- NOTE | 2017-08-15 11:05 | Rehab Evaluation ---
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" PMH - Neuro Hx Neurological Disorders No Hx Seizures No PMH - GI Hx Gastrointestinal Disorders Yes Hx Gastroesophageal Reflux Yes PMH - Hx Genitourinary Disorders Yes Patient No Hx Urinary Tract Infection Yes PMH - Endocrine Hx Endocrine Disorders Yes Hx Diabetes Yes: Type II Hx Thyroid Disease Yes: Hypothyroid PMH - Musculoskeletal Hx Musculoskeletal Disorders Yes Hx Arthritis Yes Hx Osteoporosis Yes PMH - Psych Hx Psychiatric Problems No PMH - Hematology/Oncology Hx Hematology/Oncology Yes Disorders Hx Cancer Yes: Over 10 years ago Hx Chemotherapy No Hx Radiation Therapy Yes Premorbid Status: Detail (Pt. was Ind with all I/ADL's including driving, meal prep, grocery shopping, household management, and self care. Pt. had occasional assistance from her daughter (i.e. pickle solution maker a few things at store). Ambulates with a single point cane with wide base.) Social History: Detail (The patient lives alone in an apartment with no stairs at the enterance. The patient has to ambulate to laundry and mailbox. The patient's bathroom is equipped with a tub/shower combination with a grab bar and a tub seat and a standard toilet.) Precautions: [place], Fall - Time With Patient Total Time Spent With Patient (Min): 30 Treatment Procedures: Detail (Initial Evaluation.) Subjective Information - Subjective Information Per Patient (The patient had complaints of L LE pain, anterior surface from hip to thigh ( quadricep muscle group region).) Objective Data - Pain Pain Present: Yes Pain Intensity: 5 Pain Scale Used: Numeric (1 - 10) - Mental Status Patient Orientation: Oriented x3 - Visual Perception Appears within normal limits for therapeutic activities - ROM Within normal limits (The patient's LE AROM is WFL. Refer to OT note for UE AROM.) - Strength/Tone Not within normal limits (L LE strength hip flexors, abductors, adductors 4-/5, hip extensors 3/5, knee flexors 4-/5, knee extensors 4/5, ankle musculature 4/5 , R LE generally 4 to 4+/5 throughout.) - Bed Mobility Independent (The patient was independent with supine to and from sit transfer.) - Transfers Independent (sit to and from stand independent and toilet transfer.) - Balance Balance Sitting: Good Balance Standing: Good - Gait Detail (The patient ambulated with standard cane with wide base of support a distance of 52 feet independently. Patient complained of slight increase in pain after ambulating. The patient's gait pattern is characterized by decreased weight bearing on L LE and increased cervical and lumbar flexion.) - Special Tests Yes (Palpation: tenderness to palpation of medial L knee, L piriformis and quadratus lumborum.) Therapy Assessment - Therapy Assessment Detail (The patient was indepedent with bed mobility , transfers and ambulation. The patient's gait pattern was gaurded and reproduced minimal pain. The patient exhibited LE strength and tenderness to palpation of L medial knee, L quadratus lumborum and piriformis. The patient also exhibited L knee edema. Feel the patient would benefit from ongoing inpatient PT and Home Health PT upon discharge to treat lumbar spine, and increase L LE strength, and asess mobilty in home.) Problem List - Problem List Physical Therapy Problem List: Detail (1) L LE pain level 5 which increases with ambulation 2) Decreased L LE strength 3) Decreased ability to ambulate distances due to pain complaints 4) Muscular tightness and tenderness to palpation as outlined above. 5) Increased edema L knee) Goals - Goals Physical Therapy Goals: 1) Increase LE 1/3 muscle grade to increase stability of gait. 2) The patient will ambulate community distances with appropriate assistive device. 3) Decrease L lumbar/LE muscular tightness to improve overall functional ability. Prognosis - Prognosis Good Plan - Plan Physical Therapy Plan: Inpt PT M-F one time daily for LE strengthening exercises and mobility until d/c for [facility]. Home Health PT is recommended. Occupational Therapy Plan: D/C from in-pt. OT services.
[2017-08-19] MEDS ORDERED: Non-Formulary MISC (Alendronate Sodium [Alendronate Sodium] 70 MG) PO SCH (07:00)
== END 2017-08-15 13:10 | disposition home health service (06) ==
LOC: ER 12:18 → INTOOBSV 15:16 → MEDSURG 15:16
PROVIDERS: ADMIT Internal Medicine; ATTEND Internal Medicine
DX: M54.30 Sciatica, unspecified side (principal); I10 Essential (primary) hypertension; I25.10 Atherosclerotic heart disease of native coronary artery without angina pectoris; E11.9 Type 2 diabetes mellitus without complications; M19.90 Unspecified osteoarthritis, unspecified site
CPT/HCPCS: 99285 ×2; 85025; 80053; 36416; 82948; 72100; G0378 ×2; G8978; G8979; G8980; G8987; G8988; G8989; 99217; 99220; J1650; J2930

== ENCOUNTER 2019-02-05 15:43 | Emergency (ER) | payer MEDICARE, BC ==
[2019-02-05] MEDS ORDERED: NITROGLYCERIN 0.4MG SL TABLET #25 BTL SL PRN (16:16)
[2019-02-05] MEDS ORDERED: ASPIRIN 81 MG CHEWABLE TABLET PO ONE (16:16)
[2019-02-05 16:26] LABS: ABSOLUTE NEUTROPHIL COUNT 5.07; BASO % 0.2 % (0-6); EOS % 0.2 % (0-6); HEMATOCRIT 46.3 % (35.0-47.0); HEMOGLOBIN 15.1 gm/dl (11.6-16.0); LYMPH % 7.3 % (16-45); MEAN CELL VOLUME 92.4 fl (81-97); MEAN CORPUSCULAR HEMOGLOBIN 30.1 pg (27-33); MEAN CORPUSCULAR HGB CONC 32.6 g/dl (32-36); MEAN PLATELET VOLUME 9.9 fl (7.4-10.4); MONO % 4.3 % (0-9); PLATELET COUNT 196 K/uL (130-400); RED BLOOD COUNT 5.01 M/uL (3.80-5.40); RED CELL DISTRIBUTION WIDTH 13.3 % (11.5-14.5); WHITE BLOOD COUNT W/O DIFF 5.8 K/uL (4.2-12.2)
[2019-02-05 16:38] LABS: BLOOD UREA NITROGEN 22 mg/dL (8-23); EST GLOMERULAR FILTRATION RATE 56 mL/min
[2019-02-05 16:39] LABS: TOTAL PROTEIN 7.2 g/dL (6.6-8.7)
[2019-02-05 16:41] LABS: GLUCOSE,RANDOM 140 mg/dL (74-109)
[2019-02-05 16:43] LABS: ALB/GLOB RATIO 1.6 (1.1-1.8); ALBUMIN 4.4 g/dL (4.0-5.0); ALKALINE PHOSPHATASE 58 U/L (35-104); ALT/SGPT 22 U/L (<33); AST/SGOT 36 U/L (10.0-35.0)
[2019-02-05 16:44] LABS: CREATINE PHOSPHOKINASE 221 U/L (26-192)
[2019-02-05] MEDS ORDERED: 0.9 % SODIUM CHLORIDE 500ML 500 ML IV ONE ×2 (16:50)
[2019-02-05 16:55] LABS: PLATELET ESTIMATE NORMAL (NORMAL)
--- NOTE | 2019-02-05 17:53 | Emergency Department Record ---
History of Present Illness - General Chief Complaint: Chest Pain Stated Complaint: LT ARM/ BACK/CHEST PAIN Time Seen by Provider: 02/05/19 16:09 Source: Patient Mode of Arrival: Wheelchair Limitations: No limitations - History of Present Illness Initial Comments: pt started having cp that radiates into her back 2 hrs ago. she took 2 of her ntg at home which helped a little.pt had n/v last evening Onset/Timin -: Hour(s) Onset: During exertion Severity scale (1-10): 6 Quality: Heaviness Consistency: Constant Treatments Prior to Arrival: Nitroglycerin Treatment Prior to Arrival Comment:: 2 doses plus patch - Related Data Home Medications Medication Instructions Recorded Confirmed Last Taken Gabapentin [Neurontin] 100 mg PO BID 02/05/19 02/05/19 02/05/19 Allergies Allergy/AdvReac Type Severity Reaction Status Date / Time Sulfa (Sulfonamide Allergy PT UNSURE Verified 02/05/19 15:55 Antibiotics) OF REACTION Travel Screening - Travel/Exposure Within Last 30 Days Have you traveled within the last 30 days?: No - Travel/Exposure Within Last Year Have you traveled outside the [place] in the last year?: No - Additonal Travel Details Have you been exposed to anyone with a communicable illness?: No - Travel Symptoms Symptom Screening: Headache Review of Systems Reviewed: No additional complaints except as noted below Constitutional: Reports: As per HPI. Denies: Chills, Fever, Malaise, Night sweats, Weakness, Weight change Eyes: Reports: As per HPI. Denies: Eye discharge, Eye pain, Photophobia, Vision change ENT: Reports: As per HPI. Denies: Congestion, Dental pain, Ear pain, Epistaxis, Hearing loss, Throat pain Respiratory: Reports: As per HPI. Denies: Cough, Dyspnea, Hemoptysis, Stridor, Wheezes Cardiovascular: Reports: As per HPI. Denies: Arrhythmia, Chest pain, Dyspnea on exertion, Edema, Murmurs, Orthopnea, Palpitations, Paroxysmal nocturnal dyspnea, Rheumatic Fever, Syncope Endocrine: Reports: As per HPI. Denies: Fatigue, Heat or cold intolerance, Polydipsia, Polyuria Gastrointestinal: Reports: As per HPI. Denies: Abdominal pain, Constipation, Diarrhea, Hematemesis, Hematochezia, Melena, Nausea, Vomiting Genitourinary: Reports: As per HPI. Denies: Abnormal menses, Discharge, Dyspareunia, Dysuria, Frequency, Hematuria, Incontinence, Retention, Urgency Musculoskeletal: Reports: As per HPI. Denies: Arthralgia, Back pain, Gout, Joint swelling, Myalgia, Neck pain Skin: Reports: As per HPI. Denies: Bruising, Change in color, Change in hair/nails, Lesions, Pruritus, Rash Neurological: Reports: As per HPI. Denies: Abnormal gait, Confusion, Headache, Numbness, Paresthesias, Seizure, Tingling, Tremors, Vertigo, Weakness Psychiatric: Reports: As per HPI. Denies: Anxiety, Auditory hallucinations, Depression, Homicidal thoughts, Suicidal thoughts, Visual hallucinations Hematological/Lymphatic: Reports: As per HPI. Denies: Anemia, Blood Clots, Easy bleeding, Easy bruising, Swollen glands Past Medical History - SOCIAL HISTORY Smoking Status: Never smoker Alcohol Use: None Drug Use: None - RESPIRATORY Hx Respiratory Disorders: No - CARDIOVASCULAR Hx Cardio Disorders: Yes Hx Hypertension: Yes Comment:: 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" - NEURO Hx Neuro Disorders: No Hx Seizures: No - GI Hx GI Disorders: Yes Hx Reflux: Yes - Hx Genitourinary Disorders: Yes Hx UTI: Yes - ENDOCRINE Hx Endocrine Disorders: Yes Hx Diabetes: Yes (Type II) - MUSCULOSKELETAL Hx Musculoskeletal Disorders: Yes Hx Arthritis: Yes Hx Osteoporosis: Yes - PSYCH Hx Psych Problems: No - HEMATOLOGY/ONCOLOGY Hx Hematology/Oncology Disorders: Yes Hx Cancer: Yes (Over 10 years ago) Hx Chemotherapy: No Hx Radiation Therapy: Yes Family Medical History Any Significant Family History?: No Family Hx Comment (NOT TO BE USED IN PLACE OF ITEMS BELOW): Unable to identify and ancesterial history as patient was adopted. Hx Kidney Disease: Children *Kidney Comment: Son related to MS Physical Exam - General General Appearance: Alert, Oriented x3, Cooperative, Mild distress - Head Head exam: Normal inspection - Eye Eye exam: Normal appearance, PERRL, EOMI Pupils: Normal accommodation - ENT ENT exam: Normal exam, Mucous membranes moist, Normal external ear exam, Normal orophraynx Ear exam: Normal external inspection. negative: External canal tenderness Nasal Exam: Normal inspection. negative: Discharge, Sinus tenderness Mouth exam: Normal external inspection, Tongue normal Teeth exam: Normal inspection. negative: Dental caries Throat exam: Normal inspection. negative: Tonsillar erythema, Tonsillar exudate - Neck Neck exam: Normal inspection, Full ROM. negative: Tenderness - Respiratory Respiratory exam: Normal lung sounds bilaterally. negative: Respiratory distress - Cardiovascular Cardiovascular Exam: Normal rhythm, Normal heart sounds, Tachycardia - GI/Abdominal GI/Abdominal exam: Soft, Normal bowel sounds. negative: Tenderness - Rectal Rectal exam: Deferred - exam: Deferred - Extremities Extremities exam: Normal inspection, Full ROM, Normal capillary refill. negative: Tenderness - Back Back exam: Reports: Normal inspection, Full ROM. Denies: Muscle spasm, Rash noted, Tenderness - Neurological Neurological exam: Alert, CN II-XII intact, Normal gait, Oriented X3 - Psychiatric Psychiatric exam: Normal affect, Normal mood - Skin Skin exam: Dry, Intact, Normal color, Warm Course Vital Signs 02/05/19 02/05/19 15:46 17:23 Temperature 98.5 F Pulse Rate 110 H Pulse Rate [ 89 Pulse Ox Probe] Respiratory 20 16 Rate Blood Pressure 130/83 Blood Pressure 122/72 [Right] Pulse Ox 99 100 - Reevaluation(s) Reevaluation #1: 02/05/19 18:43 pts cp is better wiht ntg but bp dropped down to 88 Reevaluation #2: 02/05/19 18:44 ct neg for PE but pos for Reevaluation #3: 02/05/19 18:50 d/w dr mendoza Medical Decision Making - Lab Data Result diagrams: 02/05/19 15:55 02/05/19 15:55 Lab Results 02/05/19 02/05/19 02/05/19 Range/Units 15:55 15:55 15:55 WBC 5.8 (4.2-12.2) K/uL RBC 5.01 (3.80-5.40) M/uL Hgb 15.1 (11.6-16.0) gm/dl Hct 46.3 (35.0-47.0) % MCV 92.4 (81-97) fl MCH 30.1 (27-33) pg MCHC 32.6 (32-36) g/dl RDW 13.3 (11.5-14.5) % Plt Count 196 (130-400) K/uL MPV 9.9 (7.4-10.4) fl Neutrophils % 91.0 H (47-80) % Band Neutrophils % 2.0 (0-5) % Lymphocytes % 7.3 L (16-45) % Monocytes % 4.3 (0-9) % Eosinophils % 0.2 (0-6) % Basophils % 0.2 (0-6) % Absolute Neutrophils 5.07 Lymphocytes 4.0 L (16-45) % Monocytes 2.0 (0-9) % Platelet Estimate Normal (NORMAL) RBC Morphology Normal Eosinophil Count 1.0 (0-6) % D-Dimer 1.89 H (0-0.59) mg/L FEU Sodium 140 (136-145) mmol/L Potassium 3.4 (3.4-4.5) mmol/L Chloride 100 (98-107) mmol/L Carbon Dioxide 21.0 L (22-29) mmol/L Anion Gap 19.0 H (7-16) BUN 22 (8-23) mg/dL Creatinine 1.0 H (0.5-0.9) mg/dL Estimated GFR 56 mL/min Random Glucose 140 H (74-109) mg/dL Calcium 9.3 (8.8-10.2) mg/dL Total Bilirubin 0.70 (0.2-1.0) mg/dL AST 36 H (10.0-35.0) U/L ALT 22 (<33) U/L Alkaline Phosphatase 58 (35-104) U/L Creatine Kinase 221 H (26-192) U/L CK-MB (CK-2) 4.0 H (<3.77) ng/mL Troponin T < 0.010 (0-0.010) ng/mL NT-Pro-B Natriuret Pep 1587.00 H (<450) pg/mL Total Protein 7.2 (6.6-8.7) g/dL Albumin 4.4 (4.0-5.0) g/dL Globulin 2.8 (1.4-4.8) gm/dL Albumin/Globulin Ratio 1.6 (1.1-1.8) Disposition Disposition: Transfer Clinical Impression: Chest pain Qualifiers: Chest pain type: unspecified Qualified Code(s): R07.9 - Chest pain, unspecified Disposition: Acute Care Hospital Transfer Transfer To[facility] Reason For Transfer: needs piercing artist Accepting Physician: dr mendoza Time Discussed w/Accepting Physician: 18:49 Forms: Patient Portal Access Quality - Quality Measures Quality Measures: N/A - Blood Pressure Screening Does Patient Have Any of the Following: No Blood Pressure Classification: Pre-Hypertensive BP Reading Systolic Measurement: 130 Diastolic Measurement: 83 Screening for High Blood Pressure: < Pre-Hypertensive BP, F/U Documented > [G8950] Pre-Hypertensive Follow-up Interventions: Follow-up with rescreen every year.
--- NOTE | 2019-02-05 18:26 | CT ANGIOGRAM REPORT ---
EXAMINATION: CT Angiography of the Thorax EXAM DATE: 02/05/2019 6:11 PM TECHNIQUE: Standard protocol CT angiogram images were obtained through the chest following the admini stration of intravenous contrast. Coronal and sagittal MIP 3-D reformations were performed. IV Contrast: The amount and type of contrast are recorded in the medical record. INDICATION: Chest pain. COMPARISON: None ENCOUNTER: Not applicable FINDINGS: Pulmonary Artery: No pulmonary embolism is present. Aorta: No thoracic aortic aneurysm or dissection is present. Right Heart Strain: None. Heart : There is no pericardial effusion. Nelli and Mediastinum: No lymphadenopathy. Lung Parenchyma: Minimal peripheral scarring atelectasis at the left upper lobe/lingula region. Mild bibasilar dependent atelectasis. Central Airways: Normal. Pleural Effusion: None. Upper Abdomen: Large hiatal hernia. Suspect significant focal stenosis at the origin of the SMA. Sev ere atherosclerotic changes to the SMA proximally and at the midportion with calcific and low attenua tion soft plaque. Musculoskeletal and Chest Wall: Diffuse osteopenia. Otherwise unremarkable. IMPRESSION: 1. No PE. 2. 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 3. Large hiatal hernia. Dictated by: Nathan Delatorre DO on 02/05/2019 6:20 PM. .
== END 2019-02-05 19:53 | disposition short-term general hospital (02) ==
LOC: ER 15:43
DX: R07.89 Other chest pain (principal); I10 Essential (primary) hypertension; E11.9 Type 2 diabetes mellitus without complications
CPT/HCPCS: 71275; 80053; 82550; 82553; 83880; 84484; 85027; 85379; 93005; 93010; 99285; J7040